=== PATIENT | female | born 1985 | race Caucasian/White ===

== ENCOUNTER 2021-07-30 16:42 | Emergency (ER) | payer SELFPAY ==
[2021-07-30 17:38] LABS: HEMOGLOBIN 12.3 gm/dl (12.3-15.3); RED BLOOD COUNT 3.83 M/UL (4.00-5.10); WHITE BLOOD COUNT 7.7 K/UL (4.5-11.0)
[2021-07-30 18:02] LABS: BUN/CREATININE RATIO 11 (0-10)
[2021-07-30] MEDS ORDERED: IBU600 MG PO (21:57)
[2021-07-30] MEDS ORDERED: ZOFRAN ODT 4 MG4 MG SL (21:57)
== END 2021-07-30 22:07 | disposition home or self-care (01) ==
LOC: ER1 16:42
PROVIDERS: Physician Assistant
DX: U07.1 COVID-19 (principal); F17.290 Nicotine dependence, other tobacco product, uncomplicated
CPT/HCPCS: 0240U; 71045; 80053; 81001; 83605; 85025; 87040; 87081; 87880; 93005; 99284; J2405; Q9967